=== PATIENT | male | born 1995 | race Caucasian/White ===

== ENCOUNTER → 2023-09-28 | Outpatient (CLI) | payer OTHER ==
[~2023-09-28] MED LIST: Iohexol 300 - 10 ML VIAL ONE; Lidocaine PF 2% (20 MG/ML) 2 ML VIAL ONE
== END ==
LOC: MHCPAIN 13:31
DX: M54.16 Radiculopathy, lumbar region (principal)
CPT/HCPCS: J1100; Q9967

== ENCOUNTER → 2023-10-16 | Outpatient (CLI) | payer OTHER | LOC: MHCPAIN 10:07 | DX: M47.897 Other spondylosis, lumbosacral region (principal); M54.17 Radiculopathy, lumbosacral region; M25.511 Pain in right shoulder; M54.2 Cervicalgia | CPT/HCPCS: G0463 ==

== ENCOUNTER → 2023-10-26 | Outpatient (CLI) | payer OTHER | LOC: MHCPAIN 10:30 | DX: M54.16 Radiculopathy, lumbar region (principal) | CPT/HCPCS: J1040; Q9967 ==